=== PATIENT | female | born 1970 | race Caucasian/White ===

== ENCOUNTER → 2018-09-24 10:23 | Outpatient (CLI) | payer OTHER, SELFPAY ==
--- NOTE | 2018-09-24 10:29 | BI_ITS ---
MAMMOGRAPHY - BILATERAL SCREENING REASON FOR EXAM: Female, 48 years old. Routine annual screening examination. PERTINENT HISTORY: Grandmother with breast cancer. TECHNIQUE: Digital bilateral breast annika (3D mammographic acquisition) in the CC and MLO projections. 2-D mediolateral oblique (MLO) and craniocaudad (CC) views of both breasts were obtained. CAD: Full Field Digital Mammography with Computer Added Detection was performed. COMPARISON: Comparison is made with prior study dated April 30, 2017 and April 04, 2016. FINDINGS: Breast Composition: There are scattered areas of fibroglandular density. There are no dominant masses or suspicious calcifications. Stable well-defined 6 mm nodule in the upper medial portion of the right breast. No other significant abnormalities are identified. There has been no significant change since the prior study. BI/SCREENING MAMM (CAD), BILAT IMPRESSION: Stable bilateral screening mammogram. Yearly follow-up mammogram recommended. (A) ASSESSMENT CATEGORY: BIRADS Category 2: Benign. A letter regarding these results will be sent to the patient by the facility within 30 days. Approximately 10% of breast cancers are not detected by mammography. A normal mammogram should not delay biopsy of a clinically suspicious abnormality. [id number] Electronically Signed: Devin Khanna MD at 13:21 EST Tel [phone], Service support ,
== END ==
PROVIDERS: Referring Provider Obstetrics & Gynecology; Visit Provider Obstetrics & Gynecology
DX: Z12.31 Encounter for screening mammogram for malignant neoplasm of breast (principal)
CPT/HCPCS: 77063; 77067

== ENCOUNTER 2019-06-10 10:51 | Day surgery (SDC) | payer OTHER, SELFPAY ==
--- NOTE | 2019-05-09 00:54 | PCM.HPOB.BLA ---
History and Physical Date of Admission: 05/18/19 PREOPERATIVE HISTORY AND PHYSICAL HISTORY OF PRESENT ILLNESS: Rahel Samuels, a 48 year old female 2 0 0 0 2, presented for: Rahel is here for discussion of options for heavy periods. She relates that the IUD helped but she could just not get her head around having that device in her. She would like to discuss surgical intervention. She had u/s in 2015 that was WNL, no fibroids noted. States menses is irregular at this point but that is not new for her. LMT -- heavy menses which began years ago. Rahle claims it started years ago and has been present years. It occurs with menses. Severity is intolerable. An associated sign and symptom is cramping. Additional comment: did not like IUD. As above. Here for evaluation of heavy periods. ESSURE in place for contraception has been on OCP , Xulane patch, NuvaRing, Mirena IUD in past. Prefers to not resume any hormonal contraception. did not like the idea of foreign body (the Mirena IUD) in place. She has HTN and on med for this. TSH 08/2017, WNL. Pelvic sono a few years ago (2014)showed no fibroids. Reviewed options for treatment of her symptoms. May consider: hysteroscopy, D and C and endometrial ablation. With the ESSURE coils in place, HTA would be preferred. EB ALLERGIES: Penicillin, Rash MEDICATIONS HISTORY: Patient is also takin. atenolol 100 mg tablet, daily 2. Avapro 150 mg tablet, daily 3. B-Complex tablet, daily 4. ibuprofen 200 mg capsule, 800- 1000 daily 5. Zyrtec 10 mg chewable tablet, 1 daily 6. venlafaxine ER 37.5 mg capsule,extended release 24 hr, 1 daily 7. Vitamin D3 5,000 unit tablet, 1 daily REVIEW OF SYSTEMS: GENERAL - Denies fever, or chills SKIN - Denies skin changes EYES - Denies visual changes EARS - Denies difficulty hearing NOSE - Denies nasal congestion or bleeding MOUTH - Denies sore throat or difficulty swallowing NECK - Denies pain or swelling RESPIRATORY - Denies shortness of breath or wheezing CARDIOVASCULAR - Denies palpitations or chest pain GASTROINTESTINAL - Denies nausea, vomiting, diarrhea, constipation GENITOURINARY - irregular, heavy, painful menses MUSCULOSKELETAL - Denies joint or muscle pain NEUROLOGICAL - Denies localized numbness or weakness PSYCHIATRIC - Denies depression or anxiety ENDOCRINE - Denies heat or cold intolerance, weight loss or gain HEMATO-IMMUNOLOGIC - Denies excessive bleeding with cuts PAST HISTORY: Breast/Ovarian/Colon Cancers - Paternal Grandmother had Breast Cancer approximately age 70 or older Infections - Chicken pox Illnesses - HTN, plantar fasciitis and Muscle pain Accidents - no injuries of consequence History of Abnormal PAPS - Denies Hospitalizations - Childbirth and see surgery SURGICAL HISTORY: 1. tonsils as child 2. ESSURE 01-25-09 MENSTRUAL HISTORY: LMP Known?- Approximate-Month Known Amount/Duration - 7, Regularity - Irregular, Frequency - variable days, LMP - 04/09/19, Age Onset Menarche - 12 PAST PREGNANCIES: Total Pregnancies - 2; Full Term Pregnancies - 2; Premature - 0; Abortions, Induced - 0; Abortions, Spontaneous - 0; Ectopics - 0; Multiple Births - 0; Living Children - 2 FAMILY HISTORY: Father - Type 2 Diabetes; Father - FH: Hypertension; Mother - Heart disorder; Paternal Grandparent - Carcinoma of breast; SOCIAL HISTORY: Alcohol Use - denies drinking Smoking - denies smoking Diet - balanced Diet Lifestyle - moderate stress lifestyle and Exercise - active Seat Belt Use - always Employer - [employer] 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 Illicit Drug Use - denies use of street drugs Sexual Activity - Residence - [place] 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 Excessive Bleeding In The Premenopausal Period 2. Menorrhagia PLAN BY DIAGNOSIS: 1. Excessive Bleeding In The Premenopausal Period and Menorrhagia Prior ESSURE Has been on OCP, Xulane patch, NuvaRing, and IUD Prefers no further hormonal contraception. Reviewed option for hysteroscopy, D and C, and hydrothermal ablation. Will schedule surgery and notify of time and date of procedure. reviewed anticipated preop , operative and postop recovery. Plan off work and to rest day of surgery. Pain med prn. then resume all activity as tolerated the day after surgery. Reviewed success and failure rates. The visit was approximately 20 minutes in length with most of the time spent in discussion and counseling.
[2019-06-05 16:10] LABS: Hematocrit 37.7 % (37-47); Hemoglobin 12.7 g/dL (12.0-15.0); Mean Corp Hgb Conc 33.7 g/dL (32-36); Mean Corpuscular Hgb 30.3 pg (27.0-32.0); Mean Platelet Vol. 10.8 fl (6.2-12.0); Platelet Count 286 K/mm3 (150-450); RBC Distribution Width CV 12.8 % (11.6-14.6); RBC Distribution Width SD 41.5 fl (35.1-43.9); Red Blood Count 4.19 M/mm3 (4.2-5.4); White Blood Count 7.7 K/mm3 (4.4-11.0)
[2019-06-05 16:29] LABS: Thyroid Stim Hormone (TSH) 0.93 uIU/mL (0.358-3.74)
--- NOTE | 2019-06-09 08:00 | PCM.HPOB.BLA ---
History and Physical Date of Admission: 06/10/19 Rahel Samuels, a 48 year old female 2 0 0 0 2, presented for: -- GynProblem-Estab Pt Rahel is here for discussion of options for heavy periods. She relates that the IUD helped but she is just not comfortable with having that device in her. She prefers surgical intervention. She had u/s in 2015 that was WNL, no fibroids noted. Menses are irregular but that is not new . -- heavy menses . Severity is intolerable. An associated sign and symptom is cramping. As above. ESSURE in place for contraception has been on OCP , Xulane patch, Nuvaring, Mirena IUD in past. Prefers to not resume any hormonal contraception. She has HTN and on med for this. TSH 2017, WNL. Pelvic sono (2014)showed no fibroids. Would like to consider endometrial ablation. With the ESSURE coils in place, HTA would be preferred. EB ALLERGIES: Penicillin, Rash MEDICATIONS HISTORY: Patient is also takin. atenolol 100 mg tablet, daily 2. Avapro 150 mg tablet, daily 3. B-Complex tablet, daily 4. ibuprofen 200 mg capsule, 800- 1000 daily 5. Zyrtec 10 mg chewable tablet, 1 daily 6. venlafaxine ER 37.5 mg capsule,extended release 24 hr, 1 daily 7. Vitamin D3 5,000 unit tablet, 1 daily REVIEW OF SYSTEMS: GENERAL - Denies fever, or chills SKIN - Denies skin changes EYES - Denies visual changes EARS - Denies difficulty hearing NOSE - Denies nasal congestion or bleeding MOUTH - Denies sore throat or difficulty swallowing NECK - Denies pain or swelling RESPIRATORY - Denies shortness of breath or wheezing CARDIOVASCULAR - Denies palpitations or chest pain GASTROINTESTINAL - Denies nausea, vomiting, diarrhea, constipation GENITOURINARY - irregular, heavy, painful menses MUSCULOSKELETAL - Denies joint or muscle pain NEUROLOGICAL - Denies localized numbness or weakness PSYCHIATRIC - Denies depression or anxiety ENDOCRINE - Denies heat or cold intolerance, weight loss or gain HEMATO-IMMUNOLOGIC - Denies excesive bleeding with cuts PAST HISTORY: Breast/Ovarian/Colon Cancers - Paternal Grandmother had Breast Cancer approximately age 70 or older Infections - Chicken pox Illnesses - HTN, plantar faciitis and Muscle pain Accidents - no injuries of consequence History of Abnormal PAPS - Denies Hospitalizations - Childbirth and see surgery SURGICAL HISTORY: 1. tonsils as child 2. ESSURE 01-25-09 MENSTRUAL HISTORY: LMP Known?- Approximate-Month KnownAmount/Duration - 7, Regularity - Irregular, Frequency - variable days, LMP - 04/09/19, Age Onset Menarche - 12 PAST PREGNANCIES: Total Pregnancies - 2; Full Term Pregnancies - 2; Premature - 0; Abortions, Induced - 0; Abortions, Spontaneous - 0; Ectopics - 0; Multiple Births - 0; Living Children - 2 FAMILY HISTORY: Father - Type 2 Diabetes; Father - FH: Hypertension; Mother - Heart disorder; PaternalGrandparent - Carcinoma of breast; SOCIAL HISTORY: Alcohol Use - denies drinking Smoking - denies smoking Diet - balanced Diet Lifestyle - moderate stress lifestyle and Exercise - active Seat Belt Use - always Employer - [employer] 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 Excessive Bleeding In The Premenopausal Period 2. Menorrhagia PLAN BY DIAGNOSIS: 1. Excessive Bleeding In The Premenopausal Period and Menorrhagia Prior ESSURE Has been on hormonal contraception in past. Prefers no further hormonal contraception. Reviewed option for hysteroscopy, D and C, and hydrothermal ablation. Plan hysteroscopy, D and C, and hydrothermal ablation as scheduled. reviewed anticipated preop , operative and postop recovery. Discussed R,B,A of procedure as well as success and failure rates.
[2019-06-10] VITALS (7 sets, daily range): BP systolic 110–134; BP diastolic 62–85; PULSE 26–65; RESP 14–16; TEMP 36.3–36.5; O2SAT 94–100; BMI 42.3
--- NOTE | 2019-06-10 12:21 | PCM.DC.D&C ---
Discharge Diet: No Restrictions Discharge Activity: May Shower, May Take a Tub Bath Return to work on:: 06/11/19 May resume sexual activity in: No Restrictions - when comfortable Call your doctor if you observe: Fever of 101 or Higher, Using more than one pad per hour, Calf discomfort, Uncontrolled pain Additional Instructions: Take OxyIR 1 to 2 tab every 6 hr as needed for more severe pain. OK to take Tylenol 500-1000 mg by mouth every 6 hrs for milder pain ADD Ibuprofen 200 mg tablets, 2-3 tab every 6 hr as needed for moderate pain. Allergies/Adverse Reactions: Allergies Penicillins [PCN] Allergy (Verified 06/03/19 13:02) Rash Medications to take at Discharge Atenolol [Tenormin (Beta Annette)] 100 mg PO DAILY 06/03/19 Cetirizine HCl [Zyrtec] 10 mg PO DAILY 06/03/19 Cholecalciferol (Vitamin D3) [Vitamin D3] 5,000 unit PO DAILY 06/03/19 Ibuprofen 600 mg PO DAILY PRN 06/03/19 Irbesartan [Avapro] 150 mg PO DAILY 06/03/19 [place]-3 Fatty Acids/Fish Oil [[place] 3 Fish Oil Softgel] 1 ea PO DAILY 06/03/19 Venlafaxine HCl [Venlafaxine HCl ER] 37.5 mg PO DAILY 06/03/19 Vitamin B Complex 1 ea PO DAILY 06/03/19 Desloratadine 5 mg PO DAILY 06/10/19 Mometasone Furoate [Nasonex] 1 spray NASAL BID 06/10/19 Montelukast Sodium [Singulair] 10 mg PO QHS 06/10/19 Oxycodone [Oxyir] 5 - 10 mg PO Q6H PRN PRN 2 Days #10 tablet 06/10/19 The following prescriptions were given: Oxycodone [Oxyir] 5 - 10 mg PO Q6H PRN PRN 2 Days #10 tablet PRN Reason: Mod-Severe Pain (-08/13) Transmission Status: Received by [facility]/pharmacy #[id number] Primary Care Physician: Joe Hermosillo DO [Primary Care Provider] - Test Results: Test results from this visit will be discussed in further detail at your follow-up appointment, if applicable. Please Follow Up With: Yanci Best MD - [phone] When: in 2 wk for postoperative follow up visit Proposed Discharge Date: 06/10/19
--- NOTE | 2019-06-10 12:30 | EMB_PTH ---
PATIENT: CESAR CAMEJO [place] [facility] [place][id number] AGE/SX: 48/F ROOM: RE06/10/[address]: Dr. Yanci Best MD : [id number] BED: DIS: 06/10/2019 SPEC #: [id number] RECD: 06/10/19 16:36 STATUS: APARNA ROBBY #: [id number] MO: 06/10/19 12:[address]: Yanci Best DEPT: SURGICAL PATHOLOGY RECD BY: Richie Mccarthy ENTERED: 06/11/19 08:00 SP TYPE: ENDOM BX/C OTHR DR: Dr. Joe Hermosillo, DO Tissues: Endometrium, NOS Procedures: Surgery Specimen Level IV HEADER OPERATION: Hysteroscopy, Hydroablation, D & C PRE-OP DIAGNOSIS: Excessive bleeding, menorrhagia TISSUE SUBMITTED: Endometrial curettings MICROSCOPIC DIAGNOSIS Endometrial curettings: Secretory endometrium. Fragments of benign ectocervical mucosa with chronic inflammation. SJ:delmi 06/12/19 MICROSCOPIC DESCRIPTION Slides are reviewed. GROSS DESCRIPTION Received in fixative is one container labeled with the patient's name and designated endometrial curettings. The specimen consists of multiple fragments of kuhn hemorrhagic soft tissue mixed with blood clot that in aggregate measure 5 x 3 x 0.3 cm. The entire specimen is submitted in two cassettes. / NENITA:delmi 06/11/19 TC:5 CPT: 05463
[2019-06-10] MEDS: Acetaminophen 500 MG Tablet 1000 MG PO (14:38)
[2019-06-10] MEDS: oxyCODONE 5 MG Tablet 10 MG PO (14:38)
--- NOTE | 2019-06-10 16:17 | PCM.OPRPT ---
Report of Operation Date of Procedure: 06/10/19 Pre-Operative Diagnosis: menorrhagia. prior ESSURE tubal occlusion. Post-Operative Diagnosis: Same Surgery/Procedure Performed:: D and C, Hysteroscopy and HTA Description of Surgical Findings:: Hysteroscopy: Parous cervix. poor visualization due to D and C, fluffy endometrium. ESSURE coil noted at L fallopian tube. Type of Anesthesia:: IV Sedation Specimen's removed: uterine curettings. Drains: Red sanchez prior to case Estimated Blood Loss (mL): 50 cc Fluids Replaced: LR Description of Procedure: Narrative account After the R,B,Alternatives of the procedure were reviewed with the patient and her , informed consent was obtained. The patient was taken to the operating room with an IV running and placed in dorsal supine position of the operating table. She was given MAC IV sedation and repositioned to the dorsal lithotomy position and prepped and draped in the usual sterile fashion. A graves speculum was placed into the vagina and the cervix was brought into view. A single toothed tenaculum was applied to the anterior lip of the cervix. The cervix was sequentially dilated to allow admission of the hysteroscope with the HTA unit. The HTA canister initially malfunctioned which delayed the start of this procedure. While waiting for the HTA device to go through its warm up and self check, a dilation and sharp curettage was performed. The uterus sounded to 8 cm The hysteroscopy was performed with findings noted as above. Poor visulziation due to blood present. The HTA 10 minute cycle was then performed without incident. Photos were taken but visualization was poor. the ESSURE coil on the L was noted. The right could not be visualized due to blood/tissue. Excellent hemostasis was noted. The single toothed tenaculum was removed from the cervix and a RayTec was used to remove any remaining tissue and blood from the upper vagina and cervix. The procedure was terminated. The speculum was removed. The patient was returned to dorsal supine position and awakened from IV sedation and transferred to her recovery room bed in stable condition after tolerating the procedure well. Sponge, lap, needle and instrument counts were correct x two. medications given intraoperatively included Toradol 30 mg given IV. For a complete listing of the medications given intraoperatively, see the anesthesia record. - Complications none. - Admit VTE Documentation VTE Present on Admission: No VTE Mechan Device Prophylaxis: SCD's VTE Pharm Prophylaxis ordered?: No
== END 2019-06-10 15:17 | disposition home or self-care (01) ==
LOC: SDC 10:59 → AC 10:59
PROVIDERS: Family Provider Family Medicine; PCP Family Medicine; Referring Provider Obstetrics & Gynecology; Visit Provider Obstetrics & Gynecology
PROC: 0U5B8ZZ Destruction of Endometrium, Via Natural or Artificial Opening Endoscopic (ICD-10-PCS; CPT 58563; principal; 2019-06-10 12:15)
DX: N92.0 Excessive and frequent menstruation with regular cycle (principal); I10 Essential (primary) hypertension; Z79.899 Other long term (current) drug therapy; F41.9 Anxiety disorder, unspecified
CPT/HCPCS: 58558; 36415; 84443; 85027; 88305; J7120; J2405

== ENCOUNTER → 2019-10-26 12:30 | Outpatient (CLI) | payer OTHER, SELFPAY ==
[2019-06-10 11:16] VITALS: BMI 42.3
--- NOTE | 2019-10-26 12:34 | BI_ITS ---
MAMMOGRAPHY - BILATERAL SCREENING 3-D TOMOSYNTHESIS REASON FOR EXAM: Female, 49 years old. HX OF PAT GRANDMOTHER @ AGE 60''S -- NO PREV SX -- SKIN CA REMOVED 5-7YRS PERTINENT HISTORY: Positive family history as above. TECHNIQUE: 2-D mammograms and 3-D Tomosynthesis of the breast (s) were performed. CAD was performed. COMPARISON: 09/24/2018, 04/30/2017, 04/13/2016 FINDINGS: The breast composition is composed of scattered fibroglandular density. Stable 6 mm nodule on the right in the upper medial portion, likely benign. Scattered benign calcifications are seen. No dense spiculated masses or suspicious microcalcifications are identified. No architectural distortion is identified. There is no skin thickening or retraction. There has been no significant change since the prior study. BI/SCREEN MAMM (CAD) W/AGUSTINA BILAT IMPRESSION: No mammographic signs of malignancy. Routine yearly mammograms recommended. ASSESSMENT CATEGORY: BIRADS Category 2: Benign. A letter regarding these results will be sent to the patient by the facility within 30 days. FOLLOW UP RECOMMENDATION: Yearly follow up mammogram recommended. (A) Approximately 10% of breast cancers are not detected by mammography. A normal mammogram should not delay biopsy of a clinically suspicious abnormality. Electronically Signed: Edson Nj MD at 13:20 EST Tel [phone], Service support ,
== END ==
PROVIDERS: Family Provider Family Medicine; PCP Family Medicine; Referring Provider Obstetrics & Gynecology; Visit Provider Obstetrics & Gynecology
DX: Z12.31 Encounter for screening mammogram for malignant neoplasm of breast (principal)
CPT/HCPCS: 77063; 77067

== ENCOUNTER → 2020-12-12 | Outpatient (CLI) | payer OTHER, SELFPAY ==
[2019-06-10 11:16] VITALS: BMI 42.3
[2020-12-16 01:26] LABS: HPV Reflexed? NOT INDICATED
== END | disposition home or self-care (01) ==
LOC: LABSPEC 16:48
PROVIDERS: PCP Family Medicine; Visit Provider Student in an Organized Health Care Education/Training Program
DX: Z12.4 Encounter for screening for malignant neoplasm of cervix (principal)
CPT/HCPCS: 88175; G0145

== ENCOUNTER → 2021-01-06 10:34 | Outpatient (CLI) | payer OTHER, SELFPAY ==
[2019-06-10 11:16] VITALS: BMI 42.3
--- NOTE | 2021-01-06 10:35 | BI_ITS ---
MAMMOGRAPHY - BILATERAL SCREENING REASON FOR EXAM: Female, 50 years old. Routine annual screening examination. PERTINENT HISTORY: Grandmother with breast cancer. TECHNIQUE: Digital bilateral breast agustina (3D mammographic acquisition) in the CC and MLO projections. 2-D mediolateral oblique (MLO) and craniocaudad (CC) views of both breasts were obtained. CAD: Full Field Digital Mammography with Computer Added Detection was performed. COMPARISON: Comparison is made with prior study dated 07/27/2019 and 09/24/2018. FINDINGS: Breast Composition: There are scattered areas of fibroglandular density. There are no dominant masses or suspicious calcifications. Stable 5 mm well-defined nodule in the upper medial aspect likely a tiny intramammary lymph node. No other significant abnormalities are identified. There has been no significant change since the prior study. BI/SCRN MAMM (CAD)W/AGUSTINA BILAT IMPRESSION: Stable bilateral screening mammogram. Yearly follow-up mammogram recommended. (A) ASSESSMENT CATEGORY: BIRADS Category 2: Benign. A letter regarding these results will be sent to the patient by the facility within 30 days. Approximately 10% of breast cancers are not detected by mammography. A normal mammogram should not delay biopsy of a clinically suspicious abnormality. [id number] Electronically Signed: Devin Khanna MD at 12:14 EST , Service support ,
== END ==
PROVIDERS: PCP Family Medicine; Referring Provider Student in an Organized Health Care Education/Training Program; Visit Provider Student in an Organized Health Care Education/Training Program
DX: Z12.31 Encounter for screening mammogram for malignant neoplasm of breast (principal)
CPT/HCPCS: 77063; 77067